=== PATIENT | female | born 1950 ===

== ENCOUNTER 2020-09-01 06:26 | Observation (INO) ==
--- NOTE | 2020-08-07 14:03 | PAT Medication Instructions ---
Medication Instructions Date of Service August 07, 2020 Home Medications alfalfa complex 2 tabs PO QID defend/resisit 3 - 6 tabs PO DAILY PRN gentle sleep 1 tabs PO HS PRN herb lax 1 tab PO QPM osteomatrix 1 tabs PO HS Aller-Itin Otc 1 tab PO QAM Calman Powder Otc 5 ml PO QPM Opc Extra Otc 0.5 ml PO QAM Prebiotic Otc 1 cap PO DAILY PRN acetaminophen [Tylenol Extra Strength] 500 mg PO Q6H PRN cholecalciferol (vitamin D3) [Vitamin D3] 50 mcg PO QAM docusate sodium [Stool Softener] 100 - 200 mg PO HS ibuprofen [Advil] 400 mg PO Q6H PRN lactobacillus combination no.4 [Probiotic] 3,000 mmu cells PO DAILY PRN lisinopril 5 mg PO QAM metoprolol succinate 25 mg PO BID ASK your surgeon for instructions ibuprofen [Advil] 400 mg PO Q6H PRN STOP taking 2 weeks before surgery If surgery is within 2 weeks, stop taking as soon as possible. alfalfa complex 2 tabs PO QID defend/resisit 3 - 6 tabs PO DAILY PRN gentle sleep 1 tabs PO HS PRN herb lax 1 tab PO QPM osteomatrix 1 tabs PO HS Aller-Itin Otc 1 tab PO QAM Calman Powder Otc 5 ml PO QPM Opc Extra Otc 0.5 ml PO QAM DO NOT take the morning of surgery Prebiotic Otc 1 cap PO DAILY PRN cholecalciferol (vitamin D3) [Vitamin D3] 50 mcg PO QAM lactobacillus combination no.4 [Probiotic] 3,000 mmu cells PO DAILY PRN lisinopril 5 mg PO QAM Take morning of surgery With a small sip of water, OTHERWISE NOTHING TO EAT OR DRINK AFTER MIDNIGHT: metoprolol succinate 25 mg PO BID acetaminophen [Tylenol Extra Strength] 500 mg PO Q6H PRN (if needed) Take evening before surgery Prebiotic Otc 1 cap PO DAILY PRN (if needed) acetaminophen [Tylenol Extra Strength] 500 mg PO Q6H PRN (if needed) docusate sodium [Stool Softener] 100 - 200 mg PO HS lactobacillus combination no.4 [Probiotic] 3,000 mmu cells PO DAILY PRN (if needed) metoprolol succinate 25 mg PO BID Other Notes If you have any questions please call us at [phone] or [phone] or [phone] or [phone]
--- NOTE | 2020-08-11 11:21 | Anesthesiology Consultation ---
Date of Service August 11, 2020 Assessment & Plan (1) Encounter for pre-operative examination: - COVID screening: Per assessment on 08/11: Travel screen negative, no known COVID-19 positive contacts or current COVID-19 related symptoms. Surgeon arranging preop COVID testing (scheduled 08/26; PABLO Conway). Awaiting results. - Cardiology note (08/04/20): "No cardiac contraindications to having surgery done. Operative risks are increased due to underlying cardiac issues but all stable." Chart Review Chart Review: Acceptable Risk for Surgery and Patient seen in Pre Admission Testing Teaching & Discussion Pre-Anesthesia Teaching/Discussion Notes: Instructed NPO after midnight before surgery,except medications with 15 cc of water. Medication instructions provided according to the PAT guidelines. History Surgery Operation Date: 09/01/20 12:30 Proposed Procedures p Right Total Hip Replacement(Right) - Luis Armando Robins MD Height/Weight Height: 5 ft 3 in Weight: 84.4 kg Allergies Allergy/AdvReac Type Severity Reaction Status Date / Time amoxicillin [From Augmentin] Allergy Unknown Pruritus Verified 08/10/20 15:49 clavulanic acid Allergy Unknown Pruritus Verified 08/10/20 15:49 [From Augmentin] Penicillins Allergy Unknown Rash Verified 08/10/20 15:49 vancomycin Allergy Unknown Rash, Verified 08/10/20 15:49 pruritus pseudoephedrine AdvReac Unknown "All wired Verified 08/10/20 15:49 up" Metals Allergy Itchy, Uncoded 08/11/20 11:55 rash (no further details per pt) Medications Home Medications Medication Instructions Recorded Confirmed Last Taken alfalfa complex 2 tabs PO QID #0 07/23/13 08/06/20 Unknown defend/resisit 3 - 6 tabs PO DAILY PRN #0 07/23/13 08/06/20 Unknown gentle sleep 1 tabs PO HS PRN #0 07/23/13 08/06/20 Unknown herb lax 1 tab PO QPM #0 07/23/13 08/06/20 Unknown osteomatrix 1 tabs PO HS #0 07/23/13 08/06/20 Unknown Aller-Itin Otc 1 tab PO QAM 08/06/20 08/06/20 Unknown Calman Powder Otc 5 ml PO QPM 08/06/20 08/06/20 Unknown Opc Extra Otc 0.5 ml PO QAM 08/06/20 08/06/20 Unknown Prebiotic Otc 1 cap PO DAILY PRN 08/06/20 08/06/20 Unknown acetaminophen [Tylenol Extra 500 mg PO Q6H PRN 08/06/20 08/06/20 Unknown Strength] cholecalciferol (vitamin D3) 50 mcg PO QAM 08/06/20 08/06/20 Unknown [Vitamin D3] docusate sodium [Stool Softener] 100 - 200 mg PO HS 08/06/20 08/06/20 Unknown ibuprofen [Advil] 400 mg PO Q6H PRN 08/06/20 08/06/20 Unknown lactobacillus combination no.4 3,000 mmu cells PO DAILY PRN 08/06/20 08/06/20 Unknown [Probiotic] lisinopril 5 mg PO QAM 08/06/20 08/06/20 Unknown metoprolol succinate 25 mg PO BID 08/06/20 08/06/20 Unknown Blue Stop Cream 1 applic TOPICAL DAILY 08/11/20 Unknown Refresh 1 drp OPHTHALMIC (EYE) DAILY 08/11/20 08/11/20 Unknown cetyl,stear.alcoh-prop gly-sls 1 applic TOPICAL DAILY PRN 08/11/20 08/11/20 Unknown [Cetaphil] Past Medical History Medical History Carotid artery stenosis HECTOR 50 to 69% stenosis, LICA less than 50% stenosis per 05/2020 carotid imaging Degenerative joint disease of right hip Hemochromatosis Routine phlebotomy therapy (controlled with every 6 months) Hyperlipidemia No meds Hypertension LVH (left ventricular hypertrophy) Asymmetric LVH with no evidence of LVOT obstruction per 05/07/20 echo MVP (mitral valve prolapse) Hx per patient, No MVP noted on recent 05/07/20 echo (+ mild MR) Obesity Exercise / Class Metabolic Activity III < 4 Walking/Shop/Light housework Past Family History Family History Sister Family history of reaction to anesthesia AWAKE BUT COULDN'T SPEAK Grandfather (Paternal) Family hx of colon cancer Past Surgical History Surgical History History of ankle surgery Right History of arthroscopy Left knee History of section History of colonoscopy 2019 History of esophagogastroduodenoscopy (EGD) History of hysterectomy Total History of tonsillectomy History of tooth extraction Past Anesthesia History No Hx of Anesthesia Complications Sister: Perioperative "awareness" > no similar reaction with patient History of PONV No Hx of PONV and Hx of Motion Sickness (Occasional) Social History Smoking Status: Never smoker Do You Dip or Chew Tobacco: No Hx Alcohol Use: Yes Alcohol type: wine alcohol intake frequency: holidays/special occasions only Hx Substance Use: No Review of Systems Chronic, dry cough allergy related, improving. Patient denies chest pain, shortness of breath, joint pain, reflux, wheezing, palpitations. Physical Exam Vital Signs VITALS BP 125/78 P 82 TEMP 98.8 SP02 98%RA RESP 18 PHYSICAL Full cervical extension range of motion. Full TMJ range of motion. TMD 3.5 finger breaths Mallampati Score 3 Dentition: missing sides/molars, + caps/crowns (molars) Lungs: clear throughout to auscultation Cardiac: regular rate and rhythm, III/ systolic murmur Spine: normal Carotid arteries: + b/l bruit Extremities: 1+ b/l le edema Testing Laboratory Results 08/11/20 11:47 08/11/20 11:47 PT 9.9 Seconds (9.0-12.0) 08/11/20 11:47 INR 1.0 (0.9-1.1) 08/11/20 11:47 APTT 26.8 Seconds (21.0-31.0) 08/11/20 11:47 Blood Type O Positive 08/11/20 11:47 Antibody Screen NEGATIVE 08/11/20 11:47 Electrocardiogram Date: 08/11/20 Normal sinus rhythm at 71 bpm. LVH with repolarization abnormality. Possible septal infarct. Similar septal lead appearance per comparison EKG from 10/16/18 scanned into [employer]. Subsequent echo done 05/07/2020. Chest X-Ray Date: 08/11/20 FINDINGS: PA and lateral chest radiographs are obtained. No prior studies are available for comparison at the time of dictation. The cardiomediastinal silhouette is normal for projection there is mild bibasilar scarring/atelectasis. No airspace consolidation or pleural effusion is identified. Nonspecific interstitial thickening is likely chronic. There is no pneumothorax. The skeletal structures are osteopenic. The bony thorax appears intact. IMPRESSION: No active disease in the chest. Echocardiogram Date: 05/07/20 LVEF 60 to 65%. Isolated basal septal hypertrophy with maximal thickness of 1.7 cm, otherwise LV wall thickness is moderately increased (concentric). No regional wall motion abnormality. Mild MR/TR. LVOT anatomy is narrow, with turbulent flow noted during systole. There is no significant LV outflow tract obstruction detected. Compared to report from 03/19/2019, there has been no significant interval change. Stress Test Date: 08/18/17 Type: exercise Stress echo was negative for inducible ischemia. Stress EKG was nondiagnostic due to LVH abnormalities present at baseline. There is no LVOT gradient at rest with velocities increasing from 1.6 m/s to 3.0 m/s post exercise, there is very mild LVOT obstruction at peak workload however peak velocities appear set secondary to mild ventricular increasing gradients. LV EF 60 to 64%. Exercise capacity is average. Mild MR. 91% MPHR. Other Testing 7 day holter monitor (11/21/19): No sustained arrhythmias. Five patient triggered events were submitted for review that for the most part correlated with sinus rhythm and sensed supraventricular ectopy. One Event for complaint of " shortness of breath, chest pain /pressure" correlated sinus tachycardia 106 beats per minute with occasional PVCs. One event correlated sinus tachycardia at 115 beats per minute. Carotid duplex (05/26/20): Bilateral vertebral artery antegrade flow. HECTOR 50 to 69% stenosis. LICA less than 50% stenosis.
--- NOTE | 2020-08-11 12:31 | XRay Report ---
TWO VIEW CHEST CLINICAL HISTORY: Preoperative examination. Reported history of left ventricular hypertrophy and hype rtension. FINDINGS: PA and lateral chest radiographs are obtained. No prior studies are available for compariso n at the time of dictation. The cardiomediastinal silhouette is normal for projection there is mild bibasilar scarring/atelectasis. No airspace consolidation or pleural effusion is identified. Nonspeci fic interstitial thickening is likely chronic. There is no pneumothorax. The skeletal structures are osteopenic. The bony thorax appears intact. IMPRESSION: No active disease in the chest. ACT 112: Negative or not required by law. Electronically signed by: Jose C Wagoner M.D. 08/11/2020 12:29 PM
[2020-08-11 13:42] LABS: Basophils # (auto) 0.02 K/uL (0-0.2); Basophils % (auto) 0.4 %; Eosinophils # (auto) 0.08 K/uL (0-0.5); Eosinophils % (auto) 1.4 %; Hematocrit (blood only) 44.2 % (37-47); Hemoglobin 15.5 g/dL (12.0-16.0); Immature Granulocytes # (auto) 0.01 K/uL (0.00-0.02); Immature Granulocytes % (auto) 0.2 %; Lymphocytes # (auto) 1.27 K/uL (1.2-3.4); Lymphocytes % (auto) 22.9 %; Mean Corpuscular Hemoglobin 31.8 pg (25-34); Mean Corpuscular Hgb Conc 35.1 g/dL (32-36); Mean Corpuscular Volume 90.8 fL (80-100); Mean Platelet Volume 8.9 fL (7.4-10.4); Monocytes # (auto) 0.51 K/uL (0.11-0.59); Monocytes % (auto) 9.2 %; Neutrophils # (auto) 3.65 K/uL (1.4-6.5); Neutrophils % (auto) 65.9 %; Platelet Count 231 K/uL (130-400); RDW Coefficient of Variation 13.2 % (11.5-14.5); RDW Standard Deviation 43.4 fL (36.4-46.3); Red Blood Count 4.87 M/uL (4.2-5.4); White Blood Count 5.54 K/uL (4.8-10.8)
[2020-08-11 13:59] LABS: Partial Thromboplastin Time 26.8 Seconds (21.0-31.0); Prothrombin Time 9.9 Seconds (9.0-12.0)
[2020-08-11 15:01] LABS: BUN Creatinine Ratio 20.2 (10-20); Calcium 9.6 mg/dl (8.5-10.1); Creatinine Clr Calc Pharmacy 85.1 ml/min; Est GFR (African American) 105.9; Est GFR (Non-African American) 91.4; Potassium 4.2 mmol/L (3.5-5.1)
--- NOTE | 2020-08-12 06:39 | Electrocardiogram Report ---
Test Reason : Blood Pressure : / mmHG Vent. Rate : 071 BPM Atrial Rate : 071 BPM P-R Int : 176 ms QRS Dur : 088 ms QT Int : 396 ms P-R-T Axes : 036 037 -19 degrees QTc Int : 430 ms Normal sinus rhythm Left ventricular hypertrophy with repolarization abnormality Possible Septal infarct Abnormal ECG No previous ECGs available Confirmed by Christopher Lemus ([id number]) on 08/12/2020 6:39:20 AM Referred By: Luis Armando Robins Confirmed By:Christopher Lemus
--- NOTE | 2020-08-29 10:52 | History and Physical Report ---
DATE OF ADMISSION: 09/01/2020 CHIEF COMPLAINT: Right hip pain. HISTORY OF PRESENT ILLNESS: The patient is a 69-year-old female who presents for treatment of her right hip. She has about 4-5 year history of gradually increased right hip pain and discomfort that has become more debilitating over time. Pain is mostly groin pain and lateral hip pain radiating down into her thigh towards the knee. She has seen Dr. Katz in the past and had been treated and he told her that she had some arthritis. Denies any numbness. She had been through physical therapy, which did not help at all. She has had chiropractic treatments, which helped a little bit. She has difficulty putting her shoes and socks on. It is limiting her walking ability. Minimal back pain. She would like to have her hip fixed. PAST MEDICAL HISTORY: Significant for, 1. Heart disease. 2. Mitral valve prolapse. 3. Elevated cholesterol. 4. Hypertension. 5. Mild obesity with BMI of 33. PAST SURGICAL HISTORY: Includes, 1. . 2. Tonsillectomy. 3. Hysterectomy. 4. Ankle surgery. 5. Knee surgery. ALLERGIES: None. CURRENT MEDICATIONS: Include, 1. Lisinopril once a day. 2. Metoprolol twice a day. SOCIAL HISTORY: A 69-year-old female. She is . Lives in [place]. Rare alcohol intake. One child. Does not smoke. FAMILY HISTORY: Significant for blood clots and heart disease. REVIEW OF SYSTEMS: Negative for diabetes, neurologic problem, vascular problems or bleeding disorders. No chest pain or shortness of breath. She has no history of DVT or PE. No known bleeding problems. PHYSICAL EXAMINATION: GENERAL: Shows a pleasant, middle-aged female. Looks to be in pretty good health. HEENT: Benign. NECK: Supple, no lymphadenopathy. LUNGS: Clear to auscultation. HEART: Regular rate and rhythm. ABDOMEN: Soft, nontender, nondistended. EXTREMITIES: Grossly neurovascularly intact except as follows: Examination of the right hip reveals the patient walks with a slightly antalgic gait. Leg lengths clinically look pretty equal. She is tender over the greater trochanter bursa. She does have stiffness and pain with hip motion. I can internally rotate to about 5 degrees max, which recreates pain. Negative straight leg raise. No knee effusion. X-RAYS: X-rays of the right hip reveal advanced right hip DJD. She has complete loss of her superior joint space. She has got cystic changes of the femoral head. Fairly large medial osteophyte. ASSESSMENT AND PLAN: A 69-year-old white female with advanced right hip degenerative joint disease. She has got some lumbar spondylosis as well, but hip seems to be the limiting factor. She has failed conservative measures and would like to have her hip replaced. She does apparently have a metal allergy and we will make sure we use titanium implants and a ceramic head. She also has high iron levels, so we will avoid iron use perioperatively. She knows to hold her lisinopril and take the metoprolol on the morning of surgery. As far as discharge plans, she is planning to be discharged to home using [facility] home health program. The risks and benefits of total hip replacement were explained to the patient including but not limited to DVT, PE, , infection, neurological injury, vascular injury, bleeding problem, pain, limited range of motion, stiffness, incomplete relief of symptoms, etc. The patient understands and desires to proceed. Informed consent was obtained.
[~2020-09-01 06:26] MED LIST: ACETAMINOPHEN 500 MG TAB PO SCH; FAMOTIDINE 20 MG TAB PO SCH; GABAPENTIN 300 MG CAP PO SCH; LR 15ML/HR IV SCH; LR 60ML/HR IV SCH; Scopolamine 1 MG TDSY TD SCH; TRANEXAMIC ACID 1,000 MG **IV Pre-op IV SCH; ceFAZolin 2000MG 2,000 MG/15 ML SYR IV SCH
[2020-09-01] MEDS ORDERED: BUPIVACAINE 0.5 % 5 MG/1 ML PF 10ML VIAL ONE (06:32)
--- NOTE | 2020-09-01 06:52 | History & Physical Bridge Note ---
Date of Service September 01, 2020 History & Physical Bridge Note I have examined the patient, reviewed the History & Physical and in the interval since the performance of the History & Physical I have noted the following changes of clinical significance: no changes noted
[2020-09-01] MEDS ORDERED: MIDAZOLAM HCL 1 MG/ML 2ML VIAL ONE (07:08)
[2020-09-01] MEDS ORDERED: MoRPHine SULFATE PF 1 MG/ML 10 ML AMP/VIAL ONE (07:08)
[2020-09-01] MEDS ORDERED: NALOXONE HCL 0.08 MG in SYRINGE 1.8 ML IV PRN (08:34)
[2020-09-01] MEDS ORDERED: LACTATED RINGER'S 500 ML IV PRN (08:34)
[2020-09-01] MEDS ORDERED: NALOXONE HCL 0.4 MG/1 ML VIAL/CARP IV PRN (08:34)
[2020-09-01] MEDS ORDERED: ePHEDrine sulfate 50 MG/ML AMP IV PRN (08:34)
[2020-09-01] MEDS ORDERED: MEPERIDINE HCL 25 MG/ML CARP/VIAL IV PRN (08:34)
[2020-09-01] MEDS ORDERED: ONDANSETRON INJ 2 MG/ML 2 ML VIAL IV PRN (08:34)
[2020-09-01] MEDS ORDERED: MoRPHine SULFATE PF 1 MG/ML 10 ML AMP/VIAL INT SPINAL ONE (08:34)
[2020-09-01] MEDS ORDERED: NALOXONE HCL 1 MG in SODIUM CHLORIDE 0.9% 1000ML 1,000 ML IV PRN (08:34)
[2020-09-01] MEDS ORDERED: BUPIVACAINE/EPINEPHRINE 0.5% MPF 1:200,000 30 ML VIAL ONE (08:39)
[2020-09-01] MEDS ORDERED: SODIUM CHLORIDE 0.9% 1000ML 1,000 ML IV SCH (08:45)
[2020-09-01] MEDS ORDERED: NO NARCOTICS OR SEDATIVES SCH (08:45)
[2020-09-01] MEDS ORDERED: PROPOFOL IV EMULSION 10 MG/ML 20 ML VIAL IV ONE (09:10)
[2020-09-01] MEDS ORDERED: ePHEDrine sulfate 50 MG/ML SYR ONE (09:58)
[2020-09-01] MEDS ORDERED: PHENYLEPHRINE HCL 10 MG/ML VIAL ONE (09:58)
--- NOTE | 2020-09-01 11:11 | Operative Report ---
Post Operative Report Pre & Post Diagnosis Operation Date: 09/01/20 08:50 Pre-Op Diagnosis: Right Hip Advanced Degenerative Joint Disease Post-Op Diagnosis: Right Hip Advanced Degenerative Joint Disease I identified the patient and participated in the time-out.: Yes Procedure Operation Date: 09/01/20 08:50 Actual Procedures p Right Total Hip Arthroplasty--Uncemented(Right) - Luis Armando Robins MD Surgeon Luis Armando Robins MD [employer] LEXIE Mohamud Estimated Blood Loss 200 Findings Consistent with Post-Op Diagnosis Operative findings revealed a large soft tissue envelope. She had grade 4 [id number] disease of the femoral head and acetabulum. Moderate-sized anterior acetabular osteophyte. Fluids 850 cc Specimens Right femoral head sent for pathology Drains None Anesthesia Type Spinal MAC Complications none Disposition Accompanied Patient To Recovery: Yes Disposition: Recovery Room Indications Patient is a 69-year-old female who has had a several year history of gradually increasing right hip pain discomfort describes gotten worse over time. She failed conservative measures. X-rays revealed advanced right hip DJD. She elected proceed with surgical treatment. Patient did fairly large soft tissue envelope with a BMI of 34 may consider surgery significantly more difficult due to the soft tissue envelope. Description of Procedure Operative implants consist of: 1. Biomet G7 size 48 mm acetabular shell. 2. 6.5 cancellous acetabular screws 1 of 35 mm in length 1 to 20 mm length. 3. Lincoln hole santa's helper. 4. Highly cross-linked polyethylene liner with a 48 mm outer diameter and 32 mm inner diameter. 5. DePuy Corail size 10 KLA femoral stem. 6. +5/32 mm ceramic articular ball. The patient was taken to the operating, identified, placed on the operating table supine position but all contractors were properly padded. IV antibiotics tried by anesthesia team. A spinal anesthetic had been implemented holding area. Groves catheter was placed in sterile fashion. The patient then placed in the left lateral decubitus position. Axillary roll was placed. A Stulberg hip positioner was used for positioning. The right hip and leg were then prepped and draped in usual sterile fashion. A posterior lateral approach to the right hip was then performed through a curvilinear incision centered over the greater trochanter. Sharp dissection got through subcutaneous tissue down to the IT band gluteal fascia the IT band gluteal fascia then incised longitudinally in line with the skin incision. The underlying greater bursa was excised. The piriformis and external rotators along with the posterior capsule were then released from the posterior aspect hip joint as a single layer. Great care was taken throughout the procedure protect the sciatic nerve at all times. The hip was internally rotated and dis located. Femoral neck osteotomy cut was then made with Final Cut about 12 mm above the lesser trochanter. Femoral head was removed and sent for pathology. The femur was retracted anteriorly. Attention drawn the acetabulum. The acetabular labrum was excised. The pulmonary fat was excised. Sequential reaming the acetabular was then performed begin with size 43 and progressing up to 47. I did reamed some with a 48 reamer and then placed a 48 cup. This was placed in about 40 degrees lateral opening and 20 degrees of anteversion. We worked hard to get this in proper position considering the soft tissue envelope. An anterior osteophyte was removed. Trial liner was placed. Attention drawn the femur. The proximal femur was entered with a cookie-cutter followed by canal finder. I then broached begin the size 8 and progressing up to 9. Got pretty good fit with a 9. We then trialed the hip and it was fully stable. After trial in the hip, the implant seemed a little bit rotationally loose so I did broach and up to a size 10. We got excellent stability. Calcar reamer was used smooth and off the calcar. We trialed the hip and the +5 articular ball provide full stability in full extension and external rotation and flexion to 9 degrees internal rotation over 50 degrees. Leg lengths seemed appropriate. Soft tissue tension seemed appropriate. I elect to place these implants. All trial implants were removed. An apex hole santa's helper was placed. Highly cross-linked polyethylene liner was placed. A size 10 KLA femoral stem was impacted in position. +5/32 mm ceramic articular ball was placed. Hip was located once again found to be stable. Attention drawn toward closing. Nupathe wounds irrigated scope soft pulsatile lavage solution. I did inject locally with 60 cc of half percent Marcaine with epinephrine. The posterior capsule and external rotators were then repaired through drill holes in the posterior trochanter with #2 Tycron suture as a single layer. The IT band gluteal fascia then closed in 1 PDS suture running fashion for subcutaneous tissue then closed with 2 layers the deep layer #2 Vicryl suture and subcutaneous tissues with 2-0 Dexon suture in a buried interrupted fashion the skin was closed skin gage. Leg was then cleaned and dried and sterile Prevena wound VAC dressing was applied due to the large soft tissue envelope. Patient then transferred to the recovery room in stable condition. Patient tolerated procedure well and there were no complications. Justin Mohamud, my physician certified medical technician assistant, was present for the entire procedure. His assistance was essential and required for appropriate patient positioning, prepping and draping, surgical exposure, performing the technical details of the operation, placement the implants, closure of the wound, and placement of the sterile bandage. I attest to the content of the Intraoperative Record and any orders documented therein. Any exceptions are noted below.
--- NOTE | 2020-09-01 11:35 | Anesthesiology Progress Note ---
Date of Service September 01, 2020 Anesthesia Post Procedure Vital Signs Vital Signs: Temp Pulse Pulse Resp BP BP Pulse Ox 09/01/20 11:25 80 16 116/65 96 09/01/20 11:15 80 16 106/68 96 09/01/20 11:05 83 15 97/65 L 98 09/01/20 10:55 97.3 F L 88 15 100/65 98 09/01/20 07:49 69 20 159/83 H 96 09/01/20 07:04 97.9 F 76 18 168/94 H 97 Transfer of Care Handoff Completed per policy Notes Mental Status: alert / awake / arousable and participated in evaluation Patient Amnestic to Procedure: Yes Nausea / Vomiting: adequately controlled Pain: adequately controlled Airway Patency, RR, SpO2: stable & adequate BP & HR: stable & adequate Hydration State: stable & adequate Neuraxial Anesthesia: was administered and sensory block is resolving Anesthetic Complications: no major complications apparent and Pt Satisfied with anesthetic care
[2020-09-01] MEDS: SODIUM CHLORIDE 0.9% 1000ML 1,000 ML IV SCH ×2 (12:00→20:56)
[2020-09-01] MEDS ORDERED: [UNRECOGNIZED DRUG - OTHER] PO PRN (12:03)
[2020-09-01] MEDS ORDERED: bisacodyL 10 MG SUPP PR PRN (12:03)
[2020-09-01] MEDS ORDERED: ALUMINUM/MAGNESIUM SUSP 30 ML UDC PO PRN (12:03)
[2020-09-01] MEDS ORDERED: MAGNESIUM HYDROXIDE SUSP 30 ML UDC PO PRN (12:03)
[2020-09-01] MEDS ORDERED: [UNRECOGNIZED DRUG - OTHER] PO PRN (12:03)
[2020-09-01] MEDS ORDERED: ACETAMINOPHEN 500 MG TAB PO PRN (12:03)
[2020-09-01] MEDS ORDERED: [UNRECOGNIZED DRUG - OTHER] TOP PRN (12:03)
[2020-09-01] MEDS ORDERED: NON-FORMULARY MEDICATION (Lactobacillus Combination No.4 [Probiotic] 3 billion cell Capsul PO PRN (12:03)
[2020-09-01] MEDS: diphenhydrAMINE 50 MG/ML VIAL IV PRN ×2 (12:32→22:16)
[2020-09-01] MEDS ORDERED: ALFALFA COMPLEX PO SCH (13:00)
--- NOTE | 2020-09-01 13:19 | XRay Report ---
XR hip 1V RT w pelvis CLINICAL HISTORY: Postoperative study COMPARISON: None. DISCUSSION: There are postsurgical changes of a total right hip arthroplasty. The acetabular and femo ral components appear well seated. There is no dislocation. There is gas present within the soft tiss ues consistent with recent surgery. IMPRESSION: Postsurgical changes of a total right hip arthroplasty. ACT 112: Negative or not required by law. Electronically signed by: Ty Mcdowell M.D. 09/01/2020 1:18 PM
[2020-09-01] MEDS: KETOROLAC TROMETHAMINE 15 MG/ML VIAL IV SCH ×2 (13:42→18:29)
[2020-09-01] MEDS: Scopolamine CHECK PATCH PLACEMENT SCH (16:49)
[2020-09-01] MEDS: ASCORBIC ACID 500 MG TAB PO SCH (16:49)
[2020-09-01] MEDS: ACETAMINOPHEN 500 MG TAB PO SCH (16:49)
[2020-09-01] MEDS ORDERED: TRANEXAMIC ACID / 0.7% NACL 1,000 MG/100 ML BAG IV SCH (17:00)
[2020-09-01] MEDS: ceFAZolin 2000MG 2,000 MG/15 ML SYR IV SCH (18:29)
[2020-09-01] MEDS: SENNA 8.6 MG TAB PO SCH (20:53)
[2020-09-01] MEDS: DOCUSATE SODIUM 100 MG CAP PO SCH (20:54)
[2020-09-01] MEDS: ASPIRIN 81 MG ECTAB PO SCH (20:55)
[2020-09-01] MEDS: METOPROLOL SUCC 25MG EXT REL TAB PO SCH (20:55)
[2020-09-01] MEDS ORDERED: HERB LAX PO SCH (21:00)
[2020-09-01] MEDS ORDERED: OSTEOMATRIX PO SCH (21:00)
[2020-09-01] MEDS ORDERED: [UNRECOGNIZED DRUG - OTHER] PO SCH (21:00)
[2020-09-01] MEDS: PROSOURCE NO CARB 30 ML/PKT PO SCH (22:23)
[2020-09-02] MEDS: ACETAMINOPHEN 500 MG TAB PO SCH ×4 (01:23→23:14)
[2020-09-02] MEDS: KETOROLAC TROMETHAMINE 15 MG/ML VIAL IV SCH ×5 (01:23→23:14)
[2020-09-02] MEDS: Scopolamine CHECK PATCH PLACEMENT SCH ×4 (01:24→23:14)
[2020-09-02] MEDS: ceFAZolin 2000MG 2,000 MG/15 ML SYR IV SCH (01:24)
[2020-09-02] MEDS ORDERED: METOCLOPRAMIDE HCL INJ 5 MG/ML 2 ML VIAL IV PRN (02:34)
[2020-09-02] MEDS ORDERED: DC INTRASPINAL MORPHINE ONE (02:34)
[2020-09-02] MEDS ORDERED: NALOXONE HCL 0.4 MG/1 ML VIAL/CARP IV PRN (02:34)
[2020-09-02] MEDS ORDERED: HYDROmorphone INJ 0.5 MG/0.5 ML SYR IV PRN (02:34)
[2020-09-02] MEDS ORDERED: ONDANSETRON INJ 2 MG/ML 2 ML VIAL IV PRN (02:34)
[2020-09-02] MEDS ORDERED: traMADol HCL 50 MG TABLET PO PRN (02:34)
[2020-09-02 07:29] LABS: Basophils # (auto) 0.01 K/uL (0-0.2); Basophils % (auto) 0.2 %; Eosinophils # (auto) 0.04 K/uL (0-0.5); Eosinophils % (auto) 0.6 %; Hematocrit (blood only) 30.2 % (37-47); Immature Granulocytes # (auto) 0.01 K/uL (0.00-0.02); Immature Granulocytes % (auto) 0.2 %; Lymphocytes # (auto) 1.36 K/uL (1.2-3.4); Lymphocytes % (auto) 21.4 %; Mean Corpuscular Hemoglobin 31.1 pg (25-34); Mean Corpuscular Hgb Conc 33.1 g/dL (32-36); Mean Corpuscular Volume 93.8 fL (80-100); Mean Platelet Volume 8.9 fL (7.4-10.4); Monocytes # (auto) 0.62 K/uL (0.11-0.59); Monocytes % (auto) 9.7 %; Neutrophils # (auto) 4.32 K/uL (1.4-6.5); Neutrophils % (auto) 67.9 %; Platelet Count 154 K/uL (130-400); RDW Coefficient of Variation 13.9 % (11.5-14.5); Red Blood Count 3.22 M/uL (4.2-5.4); White Blood Count 6.36 K/uL (4.8-10.8)
[2020-09-02] MEDS: DOCUSATE SODIUM 100 MG CAP PO SCH ×2 (07:45→20:50)
[2020-09-02] MEDS: ASCORBIC ACID 500 MG TAB PO SCH ×2 (07:45→17:25)
[2020-09-02] MEDS: lisinopril 5 MG TAB PO SCH (07:46)
[2020-09-02] MEDS: METOPROLOL SUCC 25MG EXT REL TAB PO SCH ×2 (07:47→20:50)
[2020-09-02] MEDS: ADVANCED PROBIOTIC 1250 MG CAPSULE PO SCH (07:47)
[2020-09-02] MEDS: MULTIVITAMIN TAB PO SCH (07:47)
[2020-09-02] MEDS: ASPIRIN 81 MG ECTAB PO SCH ×2 (07:48→20:51)
[2020-09-02] MEDS: PROSOURCE NO CARB 30 ML/PKT PO SCH ×3 (07:50→20:50)
[2020-09-02] MEDS: CHOLECALCIFEROL 1,000 UNITS 25 MCG TAB PO SCH (07:50)
[2020-09-02 07:56] LABS: BUN Creatinine Ratio 19.7 (10-20); Calcium 8.2 mg/dl (8.5-10.1); Creatinine Clr Calc Pharmacy 87.4 ml/min; Est GFR (African American) 106.5 ml/min; Est GFR (Non-African American) 91.9 ml/min; Potassium 4.1 mmol/L (3.5-5.1)
[2020-09-02] MEDS ORDERED: dexAMETHasone 10 MG in SYRINGE 0 ML IV SCH (08:00)
[2020-09-02] MEDS ORDERED: [UNRECOGNIZED DRUG - OTHER] PO SCH (09:00)
[2020-09-02] MEDS ORDERED: [UNRECOGNIZED DRUG - OTHER] PO SCH (09:00)
[2020-09-02] MEDS: ARTIFICIAL TEARS OP SCH (10:17)
--- NOTE | 2020-09-02 19:16 | Progress Notes ---
DATE: 09/02/2020 SUBJECTIVE: A 69-year-old white female postop day 1 from right hip replacement. She is doing pretty well. Pain is controlled. She is concerned that she has not had a bowel movement yet. No chest pain or shortness of breath. She has been passing gas. Therapy has gone okay. Has not done steps yet. OBJECTIVE: VITAL SIGNS: Temperature 36.4. Vital signs stable. GENERAL: Shows a middle-aged female. She is lying in bed, looks pretty comfortable. LUNGS: Clear to auscultation. HEART: Has a regular rate and rhythm. ABDOMEN: Soft, nontender, nondistended. EXTREMITIES: Grossly neurovascularly intact except as follows: Examination of the right hip reveals the Prevena VAC dressing to be in place. Her leg lengths are equal. Hip is located. She can dorsiflex and plantarflex her foot appropriately. She is neurologically intact. LABORATORY DATA: Hemoglobin is 10.0. Hematocrit 30.2. Electrolytes are stable. ASSESSMENT: A 69-year-old white female postoperative day 1 from right hip replacement, doing pretty well. Pain has been reasonably well controlled. She is anemic, but without symptoms. PLAN: 1. DVT prophylaxis including thigh-high TEDs, SCDs, and aspirin twice a day. 2. PT/OT. Weight bear as tolerated. Right total hip protocol. 3. Pain control, doing well with current pain regimen. 4. Disposition: She would like to stay in the evening as she has not done stairs yet. She is a little bit concerned about her pain control, but in general, doing well. We will likely discharge her tomorrow after morning therapy after she has got done some steps successfully.
[2020-09-02] MEDS: SENNA 8.6 MG TAB PO SCH (20:50)
[2020-09-03] MEDS: KETOROLAC TROMETHAMINE 15 MG/ML VIAL IV SCH (05:41)
[2020-09-03] MEDS: ADVANCED PROBIOTIC 1250 MG CAPSULE PO SCH (07:31)
[2020-09-03] MEDS: ACETAMINOPHEN 500 MG TAB PO SCH (07:31)
[2020-09-03] MEDS: CHOLECALCIFEROL 1,000 UNITS 25 MCG TAB PO SCH (07:32)
[2020-09-03] MEDS: lisinopril 5 MG TAB PO SCH (07:33)
[2020-09-03] MEDS: MULTIVITAMIN TAB PO SCH (07:33)
[2020-09-03] MEDS: ASCORBIC ACID 500 MG TAB PO SCH (07:33)
[2020-09-03] MEDS: ASPIRIN 81 MG ECTAB PO SCH (07:34)
[2020-09-03] MEDS: METOPROLOL SUCC 25MG EXT REL TAB PO SCH (07:34)
[2020-09-03] MEDS: ARTIFICIAL TEARS OP SCH (07:35)
[2020-09-03] MEDS: PROSOURCE NO CARB 30 ML/PKT PO SCH (07:35)
[2020-09-03] MEDS: DOCUSATE SODIUM 100 MG CAP PO SCH (07:35)
[2020-09-03] MEDS: Scopolamine CHECK PATCH PLACEMENT SCH (07:35)
--- NOTE | 2020-09-03 08:49 | Progress Notes ---
DATE: 09/03/2020 SUBJECTIVE: A 69-year-old white female postop day 2 from right hip replacement. She is doing pretty well. Had a little bit more soreness last night, but doing better this morning. No chest pain or shortness of breath. Not feeling dizzy or lightheaded. OBJECTIVE: VITAL SIGNS: Temperature 36.6. Vital signs stable. GENERAL: Shows a pleasant, middle-aged female. She is lying in bed this morning and looks pretty comfortable. EXTREMITIES: Examination of the right hip reveals the dressing to be clean, dry and intact. She has got a Prevena VAC in place. Leg lengths are equal. Some mild thigh swelling. She can dorsiflex and plantarflex her foot appropriately. ASSESSMENT: A 69-year-old white female postop day 2 from a right hip replacement, doing well. Pain is reasonably controlled. Hip is located. She is neurologically intact. PLAN: 1. DVT prophylaxis including thigh-high TEDs, SCDs, and aspirin twice a day. 2. PT/OT. Weight bear as tolerated. Right total hip protocol. 3. Pain control, doing okay with current pain regimen. 4. Disposition: We are going to plan to discharge her likely today after therapy. She needs to learn to go up and down some steps. She will follow up with me in about 2 weeks.
--- NOTE | 2020-09-05 15:46 | Discharge Summary ---
Date of Service September 05, 2020 Discharge Data Procedures Performed Operation Date: 09/01/20 08:50 Actual Procedures p Right Total Hip Arthroplasty--Uncemented(Right) - Luis Armando Robins MD Hospital Course (1) Status post total hip replacement, right: This patient is a 69 year old admitted on 09/01/20 and underwent total hip arthroplasty. She tolerated the procedure well and there were no complications. Transferred to the PACU post op and later to the orthopedic floor for further care. She was given ancef for antibiotic prophylaxis. She was also given CONSTANTINE stockings, SCDs, and aspirin for DVT prophylaxis. Hemoglobin, hematocrit, and vital signs were monitored during her hospital stay and remained stable. Did not require any blood transfusions. There were no complications during her hospital stay. By post op day #2 the patient was tolerating a regular diet, pain was reasonably controlled with oral pain medicine, and she was participating in physical therapy. On post op day #2 the patient was discharged home and set up with home health care. She was given printed discharge instructions including prescriptions for extra strength tylenol, aspirin, and tramadol. Continue physical therapy, weight bearing as tolerated. Continue hip precautions. Continue CONSTANTINE stockings. Follow up approximately 2 weeks post op or sooner if there are problems or concerns. Coding Level of Care Code None Diagnoses Status post total hip replacement, right Z96.641
== END 2020-09-03 13:05 | disposition home health service (06) ==
LOC: 3N 06:26 → ASU 06:26